=== PATIENT | male | born 2000 | race Caucasian/White ===

== ENCOUNTER 2022-03-15 02:22 | Emergency (ER) | payer MEDICAID ==
[2022-03-15] MEDS ORDERED: Ciprofloxacin 500 MG Tab PO ONE (02:23)
== END 2022-03-15 03:40 | disposition home or self-care (01) ==
LOC: FB.ED 02:22
DX: N45.1 Epididymitis (principal)
CPT/HCPCS: 99283; A9270-GY

== ENCOUNTER 2022-04-22 07:03 | Emergency (ER) | payer MEDICAID ==
[2022-04-22 08:09] LABS: ESTIMATED GFR 126 mL/min (>60)
== END 2022-04-22 09:05 | disposition home or self-care (01) ==
LOC: FB.ED 07:03
DX: N45.1 Epididymitis (principal); N43.3 Hydrocele, unspecified; Z72.0 Tobacco use
CPT/HCPCS: 36415; 74176; 80048; 81001; 85025; 99284